=== PATIENT | male | born 1955 | race Caucasian/White ===

== ENCOUNTER 2018-07-02 15:31 | Observation (INO) | payer BC, OTHER ==
[2018-07-02 15:42] LABS: BEDSIDE GLUCOSE 59 MG/DL (80-115)
[2018-07-02] MEDS ORDERED: DEXTROSE 50% 50 ML SYRINGE As Ordered (15:42)
[2018-07-02] MEDS: DEXTROSE 50% 50 ML SYRINGE IV ×2 (15:47→18:02)
[2018-07-02] MEDS: NS 1,000 ML IV (15:57)
[2018-07-02 16:08] LABS: BASO # 0.1 10^3/uL (0.0-0.2); BASO % 0.4 % (0.0-1.0); EOS # 0.2 10^3/uL (0.0-0.50); EOS % 1.5 % (0.0-3.0); HEMATOCRIT 39.6 % (42.0-52.0); IMMATURE GRANULOCYTE % 0.2 % (0-3.0); LYMPH # 1.2 10^3/uL (1.5-4.5); LYMPH % 9.9 % (24.0-44.0); MEAN CORPUSCULAR HEMOGLOBIN 27.1 pg (27.0-33.0); MEAN CORPUSCULAR HGB CONC 32.8 g/dl (32.0-36.5); MEAN CORPUSCULAR VOLUME 82.7 fl (80.0-96.0); MONO # 0.8 10^3/uL (0.0-0.8); MONO % 6.9 % (0.0-5.0); NEUTROPHILS # 9.9 10^3/uL (1.8-7.7); NEUTROPHILS % 81.1 % (36.0-66.0); PLATELET COUNT, AUTOMATED 308 10^3/uL (150-450); RED BLOOD COUNT 4.79 10^6/uL (4.30-6.10); RED CELL DISTRIBUTION WIDTH 13.9 % (11.5-14.5); WHITE BLOOD COUNT 12.2 10^3/uL (4.0-10.0)
[2018-07-02 16:41] LABS: ALBUMIN 3.8 GM/DL (3.2-5.2); ALBUMIN/GLOBULIN RATIO 1.41 (1.00-1.93); ALKALINE PHOSPHATASE 34 U/L (45-117); ALT/SGPT 27 U/L (12-78); ANION GAP 9 MEQ/L (8-16); AST/SGOT 16 U/L (7-37); BILIRUBIN,DIRECT < 0.1 MG/DL (0.0-0.2); BILIRUBIN,TOTAL 0.2 MG/DL (0.2-1.0); BLOOD UREA NITROGEN 21 MG/DL (7-18); CARBON DIOXIDE LEVEL 27 MEQ/L (21-32); CHLORIDE LEVEL 107 MEQ/L (98-107); CPK CREATINE PHOSPHOKINASE 146 U/L (39-308); CREATININE FOR GFR 1.27 MG/DL (0.70-1.30); ETHYL ALCOHOL (ETHANOL) < 0.003 % (0.000-0.010); GLOMERULAR FILTRATION RATE > 60.0 (>49); GLUCOSE, FASTING 93 MG/DL (70-100); MAGNESIUM LEVEL 1.9 MG/DL (1.8-2.4); MB/CK RELATIVE INDEX 1.92 (< OR =4); POTASSIUM SERUM 3.8 MEQ/L (3.5-5.1); SODIUM LEVEL 143 MEQ/L (136-145); TOTAL PROTEIN 6.5 GM/DL (6.4-8.2); TROPONIN I < 0.02 NG/ML (< 0.10)
[2018-07-02 16:45] LABS: BEDSIDE GLUCOSE 96 MG/DL (80-115)
[2018-07-02 17:01] LABS: ESTIMATED AVERAGE GLUCOSE 108 MG/DL (60-110); HEMOGLOBIN A1c 5.4 %
[2018-07-02 17:30] LABS: KETONE, URINE AUTO RFX NEGATIVE (NEGATIVE); LEUKOCYTE ESTERASE UR AUTO RFX NEGATIVE (NEGATIVE); MUCUS, URINE RFX SMALL (NEGATIVE); NITRITE, URINE AUTO RFX NEGATIVE (NEGATIVE); RBC, URINE AUTO RFX 3 /HPF (0-3); SPECIFIC GRAVITY UR AUTO RFX 1.017 (1.002-1.035); SQUAM EPITHELIAL CELL UR AURFX 0 /HPF (0-6); WBC, URINE AUTO RFX 1 /HPF (0-3)
[2018-07-02 17:59] LABS: BEDSIDE GLUCOSE 42 MG/DL (80-115)
[2018-07-02 18:20] LABS: AMPHETAMINES LEVEL URINE NEGATIVE (NEGATIVE); BARBITURATES URINE NEGATIVE (NEGATIVE); BENZODIAZEPINES URINE NEGATIVE (NEGATIVE); CANNABINOIDS URINE NEGATIVE (NEGATIVE); COCAINE METABOLITE URINE NEGATIVE (NEGATIVE); METHADONE URINE NEGATIVE (NEGATIVE); OPIATES URINE NEGATIVE (NEGATIVE); PHENCYCLIDINE URINE NEGATIVE (NEGATIVE)
[2018-07-02 19:32] LABS: BEDSIDE GLUCOSE 111 MG/DL (80-115)
[2018-07-02] MEDS: HumaLOG INSULIN (NovoLOG) PER UNIT SC (21:00)
[2018-07-02] MEDS ORDERED: ACETAMINOPHEN TAB 650MG DOSE (2X325MG) PO (21:30)
[2018-07-02] MEDS ORDERED: DEXTROSE 50% 50 ML SYRINGE IV (21:45)
[2018-07-02] MEDS ORDERED: GLUCAGON FOR INJ 1 MG VIAL (J1610) SC (21:45)
[2018-07-02] MEDS ORDERED: FLUTICASONE PROP 0.05% NASAL SPRAY 16 GM (FLONASE) (21:45)
[2018-07-02] MEDS ORDERED: GLUCOSE 4 GM CHEW TABLET PO (21:45)
[2018-07-02 23:00] LABS: BEDSIDE GLUCOSE 55 MG/DL (80-115)
[2018-07-02 23:33] LABS: BEDSIDE GLUCOSE 65 MG/DL (80-115)
[2018-07-03] MEDS: DEXTROSE 50% 50 ML SYRINGE IV (00:01)
[2018-07-03] MEDS: LISINOPRIL 40 MG TAB PO ×3 (00:11→21:49)
[2018-07-03] MEDS: CARVedilol 12.5 MG TAB PO ×3 (00:11→21:48)
[2018-07-03] MEDS: KCL 10MEQ IN D5/0.45NS 1000ML 1,000 ML IV (00:45)
[2018-07-03 00:46] LABS: BEDSIDE GLUCOSE 128 MG/DL (80-115)
[2018-07-03] MEDS: D5W/0.45% SODIUM CHLORIDE 1,000 ML IV (00:52)
[2018-07-03] MEDS: SIMVASTATIN 20 MG TAB PO ×2 (02:31→21:49)
[2018-07-03 02:35] LABS: BEDSIDE GLUCOSE 133 MG/DL (80-115)
[2018-07-03 06:07] LABS: BASO % 0.4 % (0.0-1.0); EOS # 0.4 10^3/uL (0.0-0.50); EOS % 3.2 % (0.0-3.0); HEMATOCRIT 36.3 % (42.0-52.0); HEMOGLOBIN 11.6 g/dl (13.5-17.5); IMMATURE GRANULOCYTE % 0.4 % (0-3.0); LYMPH # 1.6 10^3/uL (1.5-4.5); LYMPH % 14.1 % (24.0-44.0); MEAN CORPUSCULAR HEMOGLOBIN 26.9 pg (27.0-33.0); MEAN CORPUSCULAR VOLUME 84.2 fl (80.0-96.0); MONO # 1.3 10^3/uL (0.0-0.8); MONO % 11.8 % (0.0-5.0); NEUTROPHILS # 7.8 10^3/uL (1.8-7.7); NEUTROPHILS % 70.1 % (36.0-66.0); PLATELET COUNT, AUTOMATED 263 10^3/uL (150-450); RED BLOOD COUNT 4.31 10^6/uL (4.30-6.10); WHITE BLOOD COUNT 11.1 10^3/uL (4.0-10.0)
[2018-07-03 06:26] LABS: ANION GAP 4 MEQ/L (8-16); BLOOD UREA NITROGEN 16 MG/DL (7-18); CALCIUM LEVEL 8.4 MG/DL (8.8-10.2); CARBON DIOXIDE LEVEL 28 MEQ/L (21-32); CHLORIDE LEVEL 112 MEQ/L (98-107); CREATININE FOR GFR 1.01 MG/DL (0.70-1.30); GLOMERULAR FILTRATION RATE > 60.0 (>49); GLUCOSE, FASTING 125 MG/DL (70-100); POTASSIUM SERUM 4.3 MEQ/L (3.5-5.1); SODIUM LEVEL 144 MEQ/L (136-145)
[2018-07-03] MEDS: HumaLOG INSULIN (NovoLOG) PER UNIT SC ×4 (07:30→21:00)
[2018-07-03] MEDS: ENOXAPARIN 40 MG/0.4 ML SYRINGE (J1650) SC (08:38)
[2018-07-03] MEDS: ASPIRIN 81 MG ENTERIC TAB PO (08:38)
[2018-07-03] MEDS: amLODIPine 10 MG TAB PO (08:38)
[2018-07-03] MEDS: FENOFIBRATE 145 MG TAB (TRICOR) PO (08:38)
[2018-07-03] MEDS: SPIRONOLACTONE 25 MG TAB PO (08:38)
[2018-07-03] MEDS ORDERED: SLF 3 ML SYR IV (11:45)
[2018-07-03 13:23] LABS: BEDSIDE GLUCOSE 199 MG/DL (80-115)
[2018-07-03] MEDS: SLF 3 ML SYR IV ×2 (13:23→21:49)
[2018-07-03 17:05] LABS: BEDSIDE GLUCOSE 219 MG/DL (80-115)
[2018-07-03 21:37] LABS: BEDSIDE GLUCOSE 93 MG/DL (80-115)
[2018-07-04 04:50] LABS: BASO # 0.1 10^3/uL (0.0-0.2); BASO % 0.7 % (0.0-1.0); EOS # 0.4 10^3/uL (0.0-0.50); EOS % 5.1 % (0.0-3.0); HEMATOCRIT 36.6 % (42.0-52.0); HEMOGLOBIN 11.9 g/dl (13.5-17.5); IMMATURE GRANULOCYTE % 0.2 % (0-3.0); LYMPH # 2.1 10^3/uL (1.5-4.5); LYMPH % 24.5 % (24.0-44.0); MEAN CORPUSCULAR HEMOGLOBIN 26.9 pg (27.0-33.0); MEAN CORPUSCULAR HGB CONC 32.5 g/dl (32.0-36.5); MEAN CORPUSCULAR VOLUME 82.6 fl (80.0-96.0); MONO # 1.3 10^3/uL (0.0-0.8); MONO % 14.7 % (0.0-5.0); NEUTROPHILS # 4.8 10^3/uL (1.8-7.7); NEUTROPHILS % 54.8 % (36.0-66.0); PLATELET COUNT, AUTOMATED 247 10^3/uL (150-450); RED BLOOD COUNT 4.43 10^6/uL (4.30-6.10); RED CELL DISTRIBUTION WIDTH 13.9 % (11.5-14.5); WHITE BLOOD COUNT 8.7 10^3/uL (4.0-10.0)
[2018-07-04 05:10] LABS: ANION GAP 5 MEQ/L (8-16); BLOOD UREA NITROGEN 15 MG/DL (7-18); CALCIUM LEVEL 8.3 MG/DL (8.8-10.2); CARBON DIOXIDE LEVEL 29 MEQ/L (21-32); CHLORIDE LEVEL 113 MEQ/L (98-107); CREATININE FOR GFR 0.97 MG/DL (0.70-1.30); GLOMERULAR FILTRATION RATE > 60.0 (>49); GLUCOSE, FASTING 123 MG/DL (70-100); POTASSIUM SERUM 3.6 MEQ/L (3.5-5.1); SODIUM LEVEL 147 MEQ/L (136-145)
[2018-07-04] MEDS: SLF 3 ML SYR IV (05:17)
[2018-07-04] MEDS: HumaLOG INSULIN (NovoLOG) PER UNIT SC ×2 (07:41→12:00)
[2018-07-04] MEDS: SPIRONOLACTONE 25 MG TAB PO (07:42)
[2018-07-04] MEDS: LISINOPRIL 40 MG TAB PO (07:42)
[2018-07-04] MEDS: ENOXAPARIN 40 MG/0.4 ML SYRINGE (J1650) SC (07:42)
[2018-07-04] MEDS: ASPIRIN 81 MG ENTERIC TAB PO (07:45)
[2018-07-04] MEDS: amLODIPine 10 MG TAB PO (07:45)
[2018-07-04] MEDS: FENOFIBRATE 145 MG TAB (TRICOR) PO (07:45)
[2018-07-04] MEDS: CARVedilol 12.5 MG TAB PO (07:45)
[2018-07-04 11:42] LABS: BEDSIDE GLUCOSE 172 MG/DL (80-115)
== END 2018-07-04 12:19 | disposition home or self-care (01) ==
LOC: M MSPAV 07-04 05:43 → M PCU 07-03 02:14 → M ED 15:31 → M ED INP 20:58
PROVIDERS: Hospitalist
DX: E16.0 Drug-induced hypoglycemia without coma (principal); T38.3X5A Adverse effect of insulin and oral hypoglycemic [antidiabetic] drugs, initial encounter; E11.9 Type 2 diabetes mellitus without complications; I12.9 Hypertensive chronic kidney disease with stage 1 through stage 4 chronic kidney disease, or unspecified chronic kidney disease; N18.2 Chronic kidney disease, stage 2 (mild); E78.5 Hyperlipidemia, unspecified; Z79.82 Long term (current) use of aspirin; Z79.899 Other long term (current) drug therapy; Z87.891 Personal history of nicotine dependence
CPT/HCPCS: J1650

== ENCOUNTER → 2018-09-22 | Outpatient (CLI) | payer MEDICARE, BC, OTHER ==
[~2018-09-22] MED LIST: AMLO10TA5 PO; ASPI1CHW2 PO; ASPI81TAEC PO; CARV25TA PO; CINN500C9 PO; FENO160T10 PO; FERR325T3 PO; FLON1SPR; GLIM2TAB PO; ISOVUE-370 76% 100ML VIAL (Q9967) As Ordered ONE; JANU50TA25 PO; JANU50TA8 PO; LISI40TA PO; MINO10TA PO; OLOP0.2S OU; OMEGCAP9 PO; SIMV20TA2 PO; SIMV40TA2 PO; SPIR-10 PO; TURM500C PO
--- NOTE | 2018-09-22 19:45 | REP ---
CT NECK WITH CONTRAST: HISTORY: Enlarged submandibular gland. CONTRAST:Isovue-370 75 mL. Calcification is present in the right tonsil. This is secondary to previous inflammatory disease. The naso-, na-, and hypopharynx, larynx, and subglottic trachea are otherwise normal in appearance. A punctate calcification is present in the right parotid gland. The salivary and thyroid glands are normal in size and density. Small lymph nodes less than 1 cm in size are present in the internal jugular chains, posterior triangles, submandibular and submental areas. Degenerative change is present in the cervical spine. The lung apices are clear. The visualized sinuses are clear. IMPRESSION:There is no neck mass or adenopathy. Electronically Signed by Jean-Claude Hayden MD 09/22/2018 07:51 P
== END ==
LOC: M RAD 16:15
PROVIDERS: ATTEND Internal Medicine Medical Oncology
DX: R22.1 Localized swelling, mass and lump, neck (principal)
CPT/HCPCS: 70491; Q9967

== ENCOUNTER 2019-02-17 06:25 | Day surgery (SDC) | payer MEDICARE, BC, OTHER ==
[~2019-02-17] VITALS: Ht 172.7 cm; Wt 100.2 kg
[~2019-02-17 06:25] MED LIST changes: +CINN500C12 PO; +D200CAP2 PO; -ISOVUE-370 76% 100ML VIAL (Q9967) As Ordered ONE; +NS 1,000 ML IV ONE
[2019-02-17] MEDS ORDERED: PROPOFOL 200 MG/20 ML VIAL As Ordered ONE ×2 (06:57→08:08)
[2019-02-17] MEDS ORDERED: LIDOCAINE 2% INJ 100 MG/5 ML SDV (FOR ANES.) As Ordered ONE (06:57)
--- NOTE | 2019-02-17 07:59 | ROOR ---
Patient Name: John Joyner Procedure Date: 02/17/2019 7:27 AM Date of : 1955 Age: 63 Room: [facility] Gender: Male Note Status: Finalized Procedure: Total Colonoscopy to Cecum + Cold Snare Polypectomy + ileoscopy + biopsies Indications: High risk colon cancer surveillance: Personal history of colonic polyps, Last colonoscopy: 2013, Incidental - Clinically significant diarrhea of unexplained origin Providers: Kameron Rubio MD Referring MD: Kyrie Raphael Requesting Provider: Medicines: Monitored Anesthesia Care Complications: No immediate complications. Procedure: Pre-Anesthesia Assessment: - The heart rate, respiratory rate, oxygen saturations, blood pressure, adequacy of pulmonary ventilation, and response to care were monitored throughout the procedure. The Colonoscope was introduced through the anus and advanced to the terminal ileum. The colonoscopy was performed without difficulty. The patient tolerated the procedure well. The quality of the bowel preparation was excellent. Findings: The perianal and digital rectal examinations were normal. Non-bleeding internal hemorrhoids were found during retroflexion. The hemorrhoids were small and Grade I (internal hemorrhoids that do not prolapse). Scattered small-mouthed diverticula were found in the recto-sigmoid colon, sigmoid colon and descending colon. A small polyp was found at 20 cm proximal to the anus. The polyp was sessile. The polyp was removed with a cold snare. Resection and retrieval were complete. The terminal ileum appeared normal. Biopsies for histology were taken with a cold forceps from the ascending colon, transverse colon and descending colon for evaluation of microscopic colitis. The exam was otherwise without abnormality on direct and retroflexion views. Impression: - Non-bleeding internal hemorrhoids. - Diverticulosis in the recto-sigmoid colon, in the sigmoid colon and in the descending colon. - One small polyp at 20 cm proximal to the anus, removed with a cold snare. Resected and retrieved. - The examined portion of the ileum was normal. - The examination was otherwise normal on direct and retroflexion views. - Biopsies were taken with a cold forceps from the ascending colon, transverse colon and descending colon for evaluation of microscopic colitis. - The exam was otherwise normal to the cecum. Recommendation: - Patient has a contact number available for emergencies. The signs and symptoms of potential delayed complications were discussed with the patient. Return to normal activities tomorrow. Written discharge instructions were provided to the patient. - Discharge patient to home. - Continue present medications. - Await pathology results. - Telephone GI clinic for pathology results in 1 week. - Repeat colonoscopy in 5 years for surveillance based on pathology results. - Return to referring physician. - Check Portal Online for Path Results.([email or web address] - The findings and recommendations were discussed with the patient's family. Kameron Rubio MD Kameron Rubio MD 02/17/2019 7:59:15 AM Electronically signed by Kameron Rubio MD Number of Addenda: 0 Note Initiated On: 02/17/2019 7:27 AM Estimated Blood Loss: Estimated blood loss: none.
[2019-02-17 08:17] VITALS: BP 155/79
== END 2019-02-17 08:19 | disposition home or self-care (01) ==
LOC: M OPP 06:25
PROVIDERS: ATTEND Internal Medicine Gastroenterology
DX: D12.6 Benign neoplasm of colon, unspecified (principal); K64.0 First degree hemorrhoids; K57.30 Diverticulosis of large intestine without perforation or abscess without bleeding; Z86.010 Personal history of colon polyps

== ENCOUNTER → 2019-07-06 | Outpatient (REF) | payer MEDICARE, OTHER ==
[~2019-07-06] MED LIST changes: -GLIM2TAB PO; +GLIM2TAB2 PO; -NS 1,000 ML IV ONE
== END ==
LOC: M LAB REF 12:50
PROVIDERS: ATTEND Internal Medicine Nephrology
DX: R82.992 Hyperoxaluria (principal); D50.9 Iron deficiency anemia, unspecified

== ENCOUNTER → 2019-07-06 | Outpatient (REF) | payer MEDICARE, OTHER ==
[2019-07-06 14:07] LABS: PERCENT SATURATION 19.4 % (19.7-50.0)
== END ==
LOC: M LAB REF 12:49
PROVIDERS: ATTEND Nurse Practitioner Family
DX: D50.9 Iron deficiency anemia, unspecified (principal)

== ENCOUNTER → 2021-07-06 | Outpatient (REF) | payer MEDICARE, OTHER ==
[~2021-07-06] MED LIST changes: -AMLO10TA5 PO; +AMLO1TAB25 PO; +ASPI-569 PO; -ASPI81TAEC PO; -GLIM2TAB2 PO; +GLIM2TAB4 PO; -LISI40TA PO; +LISI40TA4 PO; -OLOP0.2S OU; +OLOP2.5D7 OU; -SIMV20TA2 PO; +SIMV20TA22 PO; -SIMV40TA2 PO; +SIMV40TA20 PO
== END ==
LOC: M LAB REF 13:25
PROVIDERS: ATTEND Nurse Practitioner Family
DX: E83.42 Hypomagnesemia (principal)

== ENCOUNTER → 2021-07-18 | Outpatient (CLI) | payer MEDICARE, BC, OTHER | LOC: M RAD 08:05 | PROVIDERS: ATTEND Nurse Practitioner Family | DX: M18.2 Bilateral post-traumatic osteoarthritis of first carpometacarpal joints (principal); I12.9 Hypertensive chronic kidney disease with stage 1 through stage 4 chronic kidney disease, or unspecified chronic kidney disease; N28.1 Cyst of kidney, acquired ==

== ENCOUNTER → 2022-01-03 | Outpatient (REF) | payer MEDICARE, BC, OTHER ==
[2022-01-07 18:07] LABS: PSA TOTAL 0.9 ng/mL (0.0-4.0)
== END ==
LOC: M LAB REF 17:44
PROVIDERS: ATTEND Nurse Practitioner Family
DX: R39.12 Poor urinary stream (principal)

== ENCOUNTER → 2022-01-17 | Outpatient (CLI) | payer MEDICARE, BC, OTHER | LOC: M RAD 13:37 | PROVIDERS: ATTEND Nurse Practitioner Family | DX: R39.12 Poor urinary stream (principal); R33.9 Retention of urine, unspecified ==

== ENCOUNTER → 2023-08-19 | Outpatient (REF) | payer MEDICARE, OTHER ==
[2023-08-19 18:56] LABS: FERRITIN 33.1 NG/ML (10.5-307.3)
[2023-08-20 16:09] LABS: PERCENT SATURATION 29.1 % (19.7-50.0)
== END ==
LOC: M LAB REF 17:17
PROVIDERS: ATTEND Nurse Practitioner Family
DX: D50.9 Iron deficiency anemia, unspecified (principal)

== ENCOUNTER → 2024-03-24 | Outpatient (REF) | payer MEDICARE, OTHER ==
[2024-03-24 18:41] LABS: TOTAL PROTEIN,RANDOM URINE 115.4 MG/DL (0.0-14.0)
[2024-03-24 18:46] LABS: CREATININE,RANDOM URINE 49.7 MG/DL
== END ==
LOC: M LAB REF 17:00
PROVIDERS: ATTEND Nurse Practitioner Family
DX: R80.9 Proteinuria, unspecified (principal); N18.2 Chronic kidney disease, stage 2 (mild)

== ENCOUNTER → 2024-06-24 | Outpatient (REF) | payer MEDICARE, OTHER ==
[2024-06-24 18:54] LABS: CREATININE,RANDOM URINE 120.5 MG/DL
[2024-06-24 18:59] LABS: TOTAL PROTEIN,RANDOM URINE 194.1 MG/DL (0.0-14.0)
== END ==
LOC: M LAB REF 17:09
PROVIDERS: ATTEND Nurse Practitioner Family
DX: N18.2 Chronic kidney disease, stage 2 (mild) (principal)

== ENCOUNTER → 2025-06-30 | Outpatient (CLI) | payer MEDICARE ==
[~2025-06-30] MED LIST changes: +LISI40TA10 PO; -LISI40TA4 PO
== END ==
LOC: M WHC 08:07
PROVIDERS: ATTEND Nurse Practitioner Family
DX: N18.2 Chronic kidney disease, stage 2 (mild) (principal); R33.8 Other retention of urine